=== PATIENT | male | born 1945 | race Caucasian/White ===

== ENCOUNTER 2019-10-02 14:56 | Emergency (ER) | payer OTHER ==
[~2019-10-02] VITALS: Ht 175.3 cm; Wt 90.7 kg
[2019-10-02] MEDS ORDERED: SODIUM BICARBONATE 8.4% INJ 50ML SYRINGE ONE (15:12)
[2019-10-02] MEDS ORDERED: EPINEPHrine HCL 1 MG/10 ML SYRG ONE (15:16)
== END 2019-10-03 00:12 | disposition expired ==
LOC: ER 14:56
DX: I46.9 Cardiac arrest, cause unspecified (principal); E11.9 Type 2 diabetes mellitus without complications; I50.9 Heart failure, unspecified
CPT/HCPCS: 31500; 92950; 99291; J0171